=== PATIENT | female | born 2000 | race African-American/Black ===

== ENCOUNTER 2024-04-25 12:42 | Emergency (ER) | payer BC, OTHER ==
[2024-04-25] MEDS ORDERED: NA CHLORIDE 0.9% 1,000 ML ONE (12:47)
[2024-04-25 13:04] LABS: Absolute Lymphocytes (CBC) 2.1 K/uL (0.7-4.9); Absolute Monocytes 0.7 K/uL (0.1-1.3); Absolute Neutrophil 4.3 K/uL (1.8-8.0); Basophils % 0.2 % (0-1.3); Eosinophils % 0.6 % (0-4.4); Hematocrit 34.2 % (36.0-45.0); Lymphocytes % 28.8 % (15.3-44.8); MCH 27.9 pg (27.0-35.0); MCHC 32.2 g/dL (32.0-36.0); MCV 86.8 fL (80-100); MPV 8.1 fL (7.6-11.3); Monocytes % 10.3 % (3.3-12.3); Neutrophils % 60.1 % (41.7-73.7); Platelets 287 thou/uL (152-406); RBC Red Blood Cell Count 3.94 M/uL (3.86-4.86); Red Cell Distribution Width 16.3 % (12.1-15.2)
[2024-04-25] MEDS ORDERED: AMPICILLIN/SULBACTAM 3GM/VIAL ONE (13:06)
[2024-04-25] MEDS ORDERED: NA CHLORIDE 0.9% 100 ML ONE (13:06)
[2024-04-25 13:19] LABS: Anion Gap 8.6 mEq/L (5.0-15.0); Potassium 3.6 mEq/L (3.5-5.1)
[2024-04-25 14:09] VITALS: BP 125/96; TEMP 98; O2SAT 100
--- NOTE | 2024-04-25 14:43 | RAD REPORT ---
EXAM DESCRIPTION: US - OB Limited - 04/25/2024 1:23 pm CLINICAL HISTORY: ABD CRAMPING, COMPARISON: No comparisons TECHNIQUE: Limited sonographic grayscale and color flow images of a late-trimester were ob tained through transabdominal approach. FINDINGS: A single intrauterine is identified. Amniotic fluid index measurement os were obtained. Dynamic fluid index: 5.55 cm. MVP: 1.82 cm IMPRESSION: 1. Low amniotic fluid index, 5.55 cm. Patient is reportedly in labor
--- NOTE | 2024-04-25 15:08 | ER ---
Nurse's Notes [facility] Name: Rogelio Desai Age: 23 yrs Sex: Female : 2000 Arrival Date: 04/25/2024 Time: 12:42 Bed 1 Private MD: Diagnosis: Precipitate labor;40 weeks gestation of -in active labor Presentation: 04/25 12:46 Chief complaint: Patient states: contractions that began at 1030 this morning. Pt ss reports she is 40 weeks and 2 days with her second child. Coronavirus screen: Client denies travel out of the [place] in the last 14 days. Ebola Screen: Patient denies exposure to infectious person. Patient denies travel to an Ebola-affected area in the 21 days before illness onset. Onset of symptoms was April 25, 2024. 12:46 Method Of Arrival: Ambulatory 12:46 Acuity: CHAR 1 13:20 Initial Sepsis Screen: Does the patient meet any 2 criteria? No. Patient's initial [facility] sepsis screen is negative. Does the patient have a suspected source of infection? No. Patient's initial sepsis screen is negative. 13:20 Risk Assessment: Do you want to hurt yourself or someone else? Unable to obtain. 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 - Infectious Disease History:: Denies. - Family history:: not pertinent. - Social history:: Smoking status: unknown. Assessment: 12:50 Obstetrical Assessment: General assessment: awake and alert, skin warm and dry, [facility] respirations even and unlabored, in active labor, Rupture of membranes not noted. Contractions began are regular every three minutes, lasting 1 minute. 13:05 Reassessment: Report given to LUISA Brooks at [facility] L[facility]DDenny 13:15 Reassessment: [facility] here to transport patient to [place]. 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 Vital Signs: 12:51 BP 124 / 79; Pulse 90; Resp 24; Temp 98; Pulse Ox 99% on R/A; ss 13:00 BP 132 / 95; Pulse 93; Resp 20; Pulse Ox 100% on R/A; nj1 13:18 BP 125 / 96; Pulse 79; Resp 18; Pulse Ox 100% ; nj1 Vitals: 12:55 Heart Tones 140. nj1 13:05 Heart Tones 137. nj1 13:08 Heart Tones 142. nj1 13:16 Heart Tones 137. nj1 ED Course: 12:44 Patient arrived in ED. nj1 12:45 Miguel Walker MD is Attending Physician. lila 12:47 Triage completed. ss 12:47 Arm band placed on right wrist. ss 12:50 Inserted saline lock: 20 gauge in left antecubital area, using aseptic technique. Blood nj1 collected. Initiated by Krissy Vargas RN. 13:14 US OB Limited In Process Unspecified. EDMS 13:15 No provider procedures requiring assistance completed. Patient transferred, IV remains ss in place. 13:21 Sarita Salgado, LUISA is Primary Nurse. nj1 13:24 initiated transfer to [facility], pt accepted to L\T\D by Dr Farmer,admin approval given bd by Josefina Cui. Administered Medications: 12:50 Drug: NS 0.9% IV 1000 ml IV at 1 bolus Per protocol; 1000 mL bolus Route: IV; Rate: 1 ss bolus; Site: left antecubital; 13:20 Follow up: Response: No adverse reaction; IV Status: Infusion continued upon admission nj1 13:10 Drug: Ampicillin-Sulbactam Sodium IVPB 3 grams IVPB once over 30 mins; (mix in 100 mL ss NS) Route: IVPB; Infused Over: 30 mins; Site: left antecubital; 13:20 Follow up: Response: No adverse reaction; IV Status: Infusion continued upon transfer nj1 13:16 Not Given (Physician Discretion): butorphanol1 mg IVP once 13:16 Not Given (Physician Discretion): ondansetron 4 mg IVP once; over 2 minutes ss Outcome: 13:06 ER care complete, transfer ordered by . [facility] 13:15 Transferred by ground EMS Transfer form completed. Note: [facility] 13:15 Condition: stable 13:15 Instructed on the need for transfer, 13:20 Patient left the ED. nj1 Signatures: Dispatcher [employer] EDMS Leatha Milligan Corey, MD MD cha Blanchard, Shelby, RN RN ss Krissy Qiu RN RN ap3 Sarita Salgado RN RN nj1 Corrections: (The following items were deleted from the chart) 13:02 12:51 BP 164 / 79; Pulse 90bpm; Resp 24bpm; Pulse Ox 99% RA; Temp 98F; ap3 ss 13:51 13:46 Patient left the ED. nj 13:54 13:41 Initial Sepsis Screen: Does the patient meet any 2 criteria? nj1 nj1
--- NOTE | 2024-04-25 15:08 | EDPHYS ---
Physician Documentation [facility] Name: Rogelio Desai Age: 23 yrs Sex: Female : 2000 Arrival Date: 04/25/2024 Time: 12:42 Bed 1 Private MD: ED Physician Miguel Walker HPI: 04/25 12:56 This 23 yrs old Black Female presents to ER via Ambulatory with complaints of Term lila Labor. 12:56 The patient presents with abdominal pain in the lower abdomen, abdominal distention in lila the lower abdomen. Onset: The symptoms/episode began/occurred 1030 hour(s) ago. The patient presents to the emergency department with possible uterine contractions, and last 5 second(s), abdominal pain, of the right lower quadrant and left lower quadrant. The estimated gestational age is 40.2 weeks. course: care: at a clinic, Leakage of Fluid: none appreciated, Ultrasound: the patient has not had an ultrasound, Risk/complications: no obvious risks or complications are appreciated. Previous pregnancies: in previous pregnancies patient has had vaginal delivery. Associated signs and symptoms: Pertinent positives: abdominal pain. Associated signs and symptoms: Pertinent positives: nausea. 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 - Infectious Disease History:: Denies. - Family history:: not pertinent. - Social history:: Smoking status: unknown. ROS: 12:56 Constitutional: Negative for fever, chills, and weight loss, Eyes: Negative for injury, lila pain, redness, and discharge, ENT: Negative for injury, pain, and discharge, Neck: Negative for injury, pain, and swelling, Cardiovascular: Negative for chest pain, palpitations, and edema, Respiratory: Negative for shortness of breath, cough, wheezing, and pleuritic chest pain, Back: Negative for injury and pain, MS/Extremity: Negative for injury and deformity, Skin: Negative for injury, rash, and discoloration, Neuro: Negative for headache, weakness, numbness, tingling, and seizure, Psych: Negative for depression, anxiety, suicide ideation, homicidal ideation, and hallucinations, Allergy/Immunology: Negative for hives, rash, and allergies, Endocrine: Negative for neck swelling, polydipsia, polyuria, polyphagia, and marked weight changes, Hematologic/Lymphatic: Negative for swollen nodes, abnormal bleeding, and unusual bruising, 12:56 Abdomen/GI: Positive for abdominal pain, abdominal cramps, abdominal distension, 12:56 : Positive for vaginal discharge, Exam: 12:56 Constitutional: This is a well developed, well nourished patient who is awake, alert, lila and in no acute distress. Head/Face: Normocephalic, atraumatic. Eyes: Pupils equal round and reactive to light, extra-ocular motions intact. Lids and lashes normal. Conjunctiva and sclera are non-icteric and not injected. Cornea within normal limits. Periorbital areas with no swelling, redness, or edema. ENT: Nares patent. No nasal discharge, no septal abnormalities noted. Tympanic membranes are normal and external auditory canals are clear. Oropharynx with no redness, swelling, or masses, exudates, or evidence of obstruction, uvula midline. Mucous membranes moist. Neck: Trachea midline, no thyromegaly or masses palpated, and no cervical lymphadenopathy. Supple, full range of motion without nuchal rigidity, or vertebral point tenderness. No Meningismus. Chest/axilla: Normal chest wall appearance and motion. Nontender with no deformity. No lesions are appreciated. Cardiovascular: Regular rate and rhythm with a normal S1 and S2. No gallops, murmurs, or rubs. Normal PMI, no JVD. No pulse deficits. Respiratory: Lungs have equal breath sounds bilaterally, clear to auscultation and percussion. No rales, rhonchi or wheezes noted. No increased work of breathing, no retractions or nasal flaring. Skin: Warm, dry with normal turgor. Normal color with no rashes, no lesions, and no evidence of cellulitis. MS/ Extremity: Pulses equal, no cyanosis. Neurovascular intact. Full, normal range of motion. Neuro: Awake and alert, GCS 15, oriented to person, place, time, and situation. Cranial nerves II-XII grossly intact. Motor strength 5/5 in all extremities. Sensory grossly intact. Cerebellar exam normal. Normal gait. 12:56 Abdomen/GI: Inspection: gravid appearance, is noted, Bowel sounds: normal, Palpation: gravid 40 week, 12:56 : CVA tenderness, is absent, Pelvic Exam: bimanual exam reveals os that is open, gravid uterus, vertex, 8 cm, no srom, fully effaced, Gravid exam: Cervical size: the cervix is dilated to approximately 8 cm(s), Bladder: is normal, Sexual behavior: the patient is sexually active, and reports a single partner, 13:38 : Pelvic Exam: bimanual exam reveals os that is open, 10 cm , +1 station, no lof, lila Vital Signs: 12:51 BP 124 / 79; Pulse 90; Resp 24; Temp 98; Pulse Ox 99% on R/A; ss 13:00 BP 132 / 95; Pulse 93; Resp 20; Pulse Ox 100% on R/A; nj1 13:18 BP 125 / 96; Pulse 79; Resp 18; Pulse Ox 100% ; nj1 MDM: 12:45 Patient medically screened. [facility] 13:03 Differential diagnosis: delivery of infant, active labor. Data reviewed: vital signs, [facility] nurses notes, lab test result(s), radiologic studies, ultrasound. Test considered but Not performed: X-ray: no x ray. Care significantly affected by the following chronic conditions: none. Counseling: I had a detailed discussion with the patient and/or guardian regarding the historical points, exam findings, and any diagnostic results supporting the discharge/admit diagnosis, lab results, radiology results, the need to transfer to another facility, for higher level of care, [facility] does not immediately have the required specialist. 04/25 12:46 Order name: Abo/rh Typing [facility] 04/25 12:46 Order name: Basic Metabolic Panel [facility] 04/25 12:46 Order name: CBC with Diff [facility] 04/25 12:46 Order name: US OB Limited [facility] 04/25 12:46 Order name: IV Saline Lock; Complete Time: 13:11 [facility] 04/25 12:46 Order name: Labs collected and sent; Complete Time: 13:21 [facility] 04/25 12:46 Order name: NPO; Complete Time: 13:11 [facility] Administered Medications: 12:50 Drug: NS 0.9% IV 1000 ml IV at 1 bolus Per protocol; 1000 mL bolus Route: IV; Rate: 1 ss bolus; Site: left antecubital; 13:20 Follow up: Response: No adverse reaction; IV Status: Infusion continued upon admission nj1 13:10 Drug: Ampicillin-Sulbactam Sodium IVPB 3 grams IVPB once over 30 mins; (mix in 100 mL ss NS) Route: IVPB; Infused Over: 30 mins; Site: left antecubital; 13:20 Follow up: Response: No adverse reaction; IV Status: Infusion continued upon transfer nj1 13:16 Not Given (Physician Discretion): butorphanol1 mg IVP once ss 13:16 Not Given (Physician Discretion): ondansetron 4 mg IVP once; over 2 minutes ss Disposition Summary: 04/25/24 13:06 Transfer Ordered Notes: Transfer Location: [facility] lila Reason: Higher level of care lila Condition: Fair lila Problem: new lila Symptoms: are unchanged lila Accepting Physician: to [facility] dr shane(04/25/24 13:46) ss Diagnosis - Precipitate labor lila - 40 weeks gestation of - in active labor lila Forms: - Medication Reconciliation Form lila - SBAR form lila Signatures: Dispatcher [employer] EDMS Miguel Walker MD MD cha Blanchard, Shelby RN RN Sarita Salgado RN RN nj1 Corrections: (The following items were deleted from the chart) 12:46 12:46 ABO/RH TYPING+BB.LAB.BRZ ordered. EDMS EDMS 12:46 12:46 BASIC METABOLIC PANEL+C.LAB.BRZ ordered. EDMS EDMS 12:46 12:46 CBC+H.LAB.BRZ ordered. EDMS EDMS 12:46 12:46 Test, Urine+UC.LAB.BRZ ordered. EDMS EDMS 12:46 12:46 Urinalysis+U.LAB.BRZ ordered. EDMS EDMS 13:46 13:[address] [facility] [address] acosta sharp ss
== END 2024-04-25 13:46 | disposition short-term general hospital (02) ==
LOC: ER 12:42
DX: O62.3 Precipitate labor (principal); Z3A.40 40 weeks gestation of pregnancy
CPT/HCPCS: 85025; 80048; 36415; 86900; 86901; 76815; J0295; J7030

== ENCOUNTER 2024-06-28 15:55 | Emergency (ER) | payer BC, OTHER ==
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
[2024-06-28 17:23] VITALS: BP 115/79; TEMP 97.9; O2SAT 100
== END 2024-06-28 16:39 | disposition home or self-care (01) ==
LOC: ER 15:55
DX: M25.512 Pain in left shoulder (principal); V43.52XA Car driver injured in collision with other type car in traffic accident, initial encounter
CPT/HCPCS: 99283

== ENCOUNTER 2024-07-01 18:04 | Emergency (ER) | payer BC, OTHER ==
[2024-07-01 20:09] LABS: Specific Gravity > 1.030 (1.005-1.030); Urine Bacteria <20 /HPF (<20); Urine Bilirubin NEGATIVE (Negative); Urine Blood Negative (Negative); Urine Clarity Extremely Turbid (Clear); Urine Color Yellow (Yellow); Urine Crystals Unidentified Few /HPF (None Seen); Urine Culture Reflex Order REFLEXED; Urine Glucose NEGATIVE (Negative); Urine Ketones NEGATIVE (Negative); Urine Microscopic Reflex YN ORDER UMIC; Urine Mucus 4+ /HPF (None Seen); Urine Nitrite NEGATIVE (Negative); Urine Protein 1+ (Negative); Urine Urobilinogen 1+ (Normal); Urine WBC >50 /HPF (<5); Urine WBC Clump Rare /HPF (None Seen); Urine Yeast (Budding) Trace /HPF (None Seen)
[2024-07-01 20:18] LABS: Specific Gravity > 1.030 (1.005-1.030)
[2024-07-01 20:20] LABS: Absolute Eosinophils 0.1 K/uL (0-0.5); Absolute Lymphocytes (CBC) 1.7 K/uL (0.7-4.9); Absolute Monocytes 0.5 K/uL (0.1-1.3); Absolute Neutrophil 3.1 K/uL (1.8-8.0); Basophils % 0.4 % (0-1.3); Eosinophils % 2.1 % (0-4.4); Hematocrit 39.5 % (36.0-45.0); Hemoglobin 12.6 g/dL (12.0-15.0); Lymphocytes % 31.1 % (15.3-44.8); MCH 26.7 pg (27.0-35.0); MCHC 31.8 g/dL (32.0-36.0); MCV 83.8 fL (80-100); MPV 8.4 fL (7.6-11.3); Monocytes % 9.6 % (3.3-12.3); Neutrophils % 56.8 % (41.7-73.7); Nucleated Red Blood Cells % 0.1 % (0-0); Platelets 383 thou/uL (152-406); RBC Red Blood Cell Count 4.71 M/uL (3.86-4.86); Red Cell Distribution Width 15.4 % (12.1-15.2)
[2024-07-01 21:36] LABS: Anion Gap 6.6 mEq/L (5.0-15.0); Potassium 3.6 mEq/L (3.5-5.1)
--- NOTE | 2024-07-01 21:58 | RAD REPORT ---
EXAM DESCRIPTION: CT - Soft Tissue Neck W/Contr CLINICAL HISTORY: FACIAL PAIN COMPARISON: No comparisons TECHNIQUE: Thin axial CT images of the neck, performed following intravenous administration of iod inated contrast. Multiplanar reformats were generated and reviewed. All CT scans are performed using dose optimization technique as appropriate and may include automated exposure control or mA/KV adjustment according to patient size. FINDINGS: Expansile multiloculated lesion of the left body of the mandible, containing fluid density anteriorly and soft tissue components posteriorly, resulting in resumption of the bony margins of th e mandible, with displacement of the molars and premolars along the mandibular alveolus, with bluntin g of the roots of the premolars and first smaller. No discrete extra osseous soft tissue component. T he mass measures 5.8 x 3.5 x 3.2 cm in greatest AP, transverse, and CC dimensions. Nasopharyngeal tissues are normal in appearance. Fossa Rosenmller are normal. Parapharyngeal fat triangles are symmetric. Tongue base structures are normal. Epiglottis and aryepiglottic folds are normal. Piriform sinuses are well aerated. The vocal cords are normal in appearance. No suspicious adenopathy. Salivary glands are normal in appearance. Upper lung nguyen are clear. Included intracranial contents are unremarkable. 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 Other considerations such as an odontogenic myxoma and more insidious entities such as fibrous dysplasia or advanced dentigerous cyst are considered less likely.
--- NOTE | 2024-07-01 22:41 | EDPHYS ---
Physician Documentation [facility] Name: Rogelio Desai Age: 23 yrs Sex: Female : 2000 Arrival Date: 07/01/2024 Time: 18:04 Bed 7 Private MD: ED Physician Sylvia Raman HPI: 07/01 18:34 This 23 yrs old Black Female presents to ER via Ambulatory with complaints of Facial kb Swelling, Cyst. 18:34 Pt is a 23 year old female who presents for swelling to left lower jaw that started one kb month ago and got worse and more painful 2 days ago. Denies fever. States she was seen by dentist, was diagnosed with a cyst and has a surgery scheduled for August 20. States she came today because symptoms have gotten worse. . DISABILITY COORDINATOR: 22:22 Not al5 Historical: - Allergies: 18:32 No Known Allergies; aa5 - PMHx: 18:32 None; aa5 - Immunization history:: Adult Immunizations unknown. - Infectious Disease History:: Denies. - Social history:: Smoking status: Reported history of juuling and/or vaping. ROS: 18:36 Constitutional: As per HPI kb Exam: 18:36 Constitutional: This is a well developed, well nourished patient who is awake, alert, kb and in no acute distress. Head/Face: Normocephalic, atraumatic. Cardiovascular: Regular rate Respiratory: Respirations even and unlabored. No increased work of breathing. Talking in full sentences Skin: Warm, dry with normal turgor. Normal color. MS/ Extremity: Pulses equal, no cyanosis. Neurovascular intact. Full, normal range of motion. Neuro: Awake and alert, GCS 15, oriented to person, place, time, and situation. Moves all extremities. Normal gait. 18:36 ENT: Dental exam: gum swelling, that is severe, specifically in the lower left second bicuspid (#20) and lower left first bicuspid (#21), Vital Signs: 18:31 BP 115 / 89; Pulse 72; Resp 16 S; Temp 97.2(TE); Pulse Ox 100% on R/A; Weight 104.78 kg aa5 (R); Height 5 ft. 4 in. (R); 20:45 BP 108 / 69; Pulse 93; Resp 16; Pulse Ox 100% on R/A; al5 22:00 BP 126 / 101; Pulse 95; Resp 16; Pulse Ox 100% ; al5 22:47 BP 125 / 83; Pulse 57; Resp 17; Temp 97.2; Pulse Ox 100% ; Pain 0/10; bm8 18:31 Body Mass Index 39.65 (104.78 kg, 162.56 cm) aa5 22:47 Pain Scale: Adult bm8 22:00 patient lying on R side al5 [place] Coma Score: 22:47 Eye Response: spontaneous(4). Motor Response: obeys commands(6). Verbal Response: bm8 oriented(5). Total: 15. MDM: 18:15 Patient medically screened. kb 22:10 Data reviewed: vital signs, nurses notes. kb 22:14 Differential diagnosis: malignancy, cyst, abscess. Counseling: I had a detailed kb discussion with the patient and/or guardian regarding the historical points, exam findings, and any diagnostic results supporting the discharge/admit diagnosis, lab results, radiology results, the need for outpatient follow up, an oral maxilofacial specialist, to return to the emergency department if symptoms worsen or persist or if there are any questions or concerns that arise at home. 23:10 Management of patient was discussed with the following: Dr Bhakta recommends kb outpatient follow up. Pt already has surgery scheduled for this mass. Discussed with pt. She will call surgeon in the morning. 07/01 18:31 Order name: CBC with Diff; Complete Time: 20:26 kb 07/01 18:31 Order name: BMP; Complete Time: 21:38 kb 07/01 18:31 Order name: Test, Urine; Complete Time: 20:20 kb 07/01 18:31 Order name: Urinalysis w/ reflexes; Complete Time: 20:12 kb 07/01 20:12 Order name: Urine Culture EDMS 07/01 18:31 Order name: CT Soft Tissue Neck W/contr; Complete Time: 21:59 kb 07/01 18:31 Order name: IV Start; Complete Time: 20:10 kb Administered Medications: 23:04 Drug: Hydrocodone-Acetaminophen PO (7.5 mg-325 mg) 1 tabs PO once Route: PO; bm8 23:04 Follow up: Response: No adverse reaction; Medication administered at discharge. bm8 Disposition Summary: 07/01/24 22:41 Discharge Ordered Notes: Location: Home Condition: Stable kb Diagnosis - 5.8cm mass of the other left body of the mandible kb Followup: kb - With: Emergency Department - When: As needed - Reason: Worsening of condition Followup: kb - With: Private Physician - When: 2 - 3 days - Reason: Recheck today's complaints, Continuance of care, Re-evaluation by your physician Forms: - Medication Reconciliation Form kb - Antibiotic Education kb - Prescription Opioid Use kb - Patient Portal Instructions kb - Leadership Thank You Letter kb Signatures: Dispatcher [employer] EDKathe Poole, INCOME TAX RETURN PREPARER-C DAVID-Karo Leroy, RN RN aa5 Saúl Lehman, RN RN bm8
--- NOTE | 2024-07-01 22:41 | ER ---
Nurse's Notes [facility] Name: Rogelio Desai Age: 23 yrs Sex: Female : 2000 Arrival Date: 07/01/2024 Time: 18:04 Bed 7 Private MD: Diagnosis: 5.8cm mass of the other left body of the mandible Presentation: 07/01 18:31 Chief complaint: Patient states: left jaw swelling and pain that began 1 month ago. aa5 Coronavirus screen: At this time, the client does not indicate any symptoms associated with coronavirus-19. Ebola Screen: Patient denies travel to an Ebola-affected area in the 21 days before illness onset. Initial Sepsis Screen: Does the patient meet any 2 criteria? No. Patient's initial sepsis screen is negative. Does the patient have a suspected source of infection? No. Patient's initial sepsis screen is negative. Risk Assessment: Do you want to hurt yourself or someone else? Patient reports no desire to harm self or others. Onset of symptoms was 2023. 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 - Infectious Disease History:: Denies. - Social history:: Smoking status: Reported history of juuling and/or vaping. Screenin:22 [facility] ED Fall Risk Assessment (Adult) History of falling in the last 3 months, al5 including since admission No falls in past 3 months (0 pts) Confusion or Disorientation No (0 pts) Intoxicated or Sedated No (0 pts) Impaired Gait No (0 pts) Mobility Assist Device Used No (0 pt) Altered Elimination No (0 pt) Score/Fall Risk Level 0 - 2 = Low Risk Oriented to surroundings, Maintained a safe environment, Hourly rounding (assess needs \T\ fall precautionary measures) done. Abuse screen: Denies threats or abuse. Denies injuries from another. Nutritional screening: No deficits noted. Tuberculosis screening: No symptoms or risk factors identified. Assessment: 20:45 General: Appears in no apparent distress. Behavior is calm, cooperative. Pain: al5 Complains of pain in lower left first bicuspid (#21) and lower left second bicuspid (#20). Neuro: Level of Consciousness is awake, alert, obeys commands, Oriented to person, place, time, situation. Cardiovascular: Patient's skin is warm and dry. Respiratory: Airway is patent Respiratory effort is even, unlabored, Respiratory pattern is regular, symmetrical. GI: No signs and/or symptoms were reported involving the gastrointestinal system. : No signs and/or symptoms were reported regarding the genitourinary system. EENT: Reports L lower jaw pain. Derm: Skin is pink, warm \T\ dry. normal. Musculoskeletal: No signs and/or symptoms reported regarding the musculoskeletal system. 22:21 Reassessment: Patient appears in no apparent distress at this time. No changes from al5 previously documented assessment. Patient and/or family updated on plan of care and expected duration. Pain level reassessed. Patient is alert, oriented x 3, equal unlabored respirations, skin warm/dry/pink. Vital Signs: 18:31 BP 115 / 89; Pulse 72; Resp 16 S; Temp 97.2(TE); Pulse Ox 100% on R/A; Weight 104.78 kg aa5 (R); Height 5 ft. 4 in. (R); 20:45 BP 108 / 69; Pulse 93; Resp 16; Pulse Ox 100% on R/A; al5 22:00 BP 126 / 101; Pulse 95; Resp 16; Pulse Ox 100% ; al5 22:47 BP 125 / 83; Pulse 57; Resp 17; Temp 97.2; Pulse Ox 100% ; Pain 0/10; bm8 18:31 Body Mass Index 39.65 (104.78 kg, 162.56 cm) aa5 22:47 Pain Scale: Adult bm8 22:00 patient lying on R side al5 [place] Coma Score: 22:47 Eye Response: spontaneous(4). Motor Response: obeys commands(6). Verbal Response: bm8 oriented(5). Total: 15. ED Course: 18:05 Patient arrived in ED. mr 18:15 K[facility] Nails [facility]C [facility] kb 18:15 Sylvia Raman MD is Attending Physician. kb 18:31 Triage completed. aa5 18:31 Arm band placed on. aa5 19:38 Saúl Lehman, RN is Primary Nurse. bm8 19:46 Primary Nurse role handed off by Saúl Lehman RN al5 19:46 Krissy Garner, RN is Primary Nurse. al5 20:03 Inserted saline lock: 22 gauge in left antecubital area, using aseptic technique. Blood ty collected. Flushed with 10 mL NS. 20:06 Initial lab(s) drawn, by me, sent to lab. ty 20:07 BMP Sent, CBC with Diff Sent. ty 20:22 Patient has correct armband on for positive identification. Bed in low position. Call al5 light in reach. Side rails up X 1. Provided Education on: processes and procedures. 20:22 No provider procedures requiring assistance completed. al5 20:43 CT Soft Tissue Neck W/contr In Process Unspecified. EDMS 22:47 Client placed on continuous cardiac and pulse oximetry monitoring. NIBP monitoring bm8 applied. Pulse ox on. NIBP on. Door closed. Noise minimized. Verbal reassurance given. 22:47 IV discontinued, intact, bleeding controlled, No redness/swelling at site. Pressure bm8 dressing applied. Administered Medications: 23:04 Drug: Hydrocodone-Acetaminophen PO (7.5 mg-325 mg) 1 tabs PO once Route: PO; bm8 23:04 Follow up: Response: No adverse reaction; Medication administered at discharge. bm8 Medication: 20:22 VIS not applicable for this client. al5 Outcome: 22:41 Discharge ordered by . kb 22:47 Discharged to home ambulatory, bm8 22:47 Condition: stable 22:47 Discharge instructions given to patient, Instructed on discharge instructions, follow up and referral plans. safety practices, Demonstrated understanding of instructions, follow-up care, medications, 23:05 Patient left the ED. bm8 Signatures: Dispatcher [employer] EDMN Kathe Nails, DIRECTOR OF ACCOUNTS RECEIVABLE-C DIRECTOR OF ACCOUNTS RECEIVABLE-Ckb Esther Page, Reg Reg LoganKaro RN RN aa5 Raymundo Dugan ty Saúl Lehman, RN LUISA bm8 Krissy Garner RN RN al5 Corrections: (The following items were deleted from the chart) 18:33 18:31 Pulse 72bpm; Resp 16bpm; Spontaneous; Pulse Ox 100% RA; Temp 97.2F Temporal; aa5 104.78 kg Reported; Height 5 ft. 4 in. Reported; BMI: 39.6; aa5 18:35 18:31 Chief complaint: Patient states: left jaw swelling and pain that began 1 month aa5 ago aa5 20: 20:10 BASIC METABOLIC PANEL+C.LAB.BRZ drawn and sent. ty ty : 20:10 CBC+H.LAB.BRZ drawn and sent. ty ty
[2024-07-01] MEDS ORDERED: HYDROCODONE/APAP 7.5/325 MG TAB ONE (23:01)
[2024-07-02 00:43] VITALS: TEMP 97.2; O2SAT 100
[2024-07-02 00:51] VITALS: BP 125/83
== END 2024-07-01 23:05 | disposition home or self-care (01) ==
LOC: ER 18:04
DX: M27.8 Other specified diseases of jaws (principal)
CPT/HCPCS: 87088; 85025; 81001; 87086; 80048; 36415; 81025; 70491; 99284; Q9967

== ENCOUNTER 2024-10-27 12:36 | Emergency (ER) | payer BC, OTHER ==
[2024-10-27 13:54] LABS: Specific Gravity 1.025 (1.005-1.030)
[2024-10-27 13:56] LABS: Sqamous Epithelial <5 /HPF (None Seen); Urine Bacteria None Seen /HPF (<20); Urine Culture Reflex Order NOT NEEDED; Urine Mucus 1+ /HPF (None Seen)
[2024-10-27 13:57] LABS: Specific Gravity 1.025 (1.005-1.030); Urine Bilirubin NEGATIVE (Negative); Urine Blood 1+ (Negative); Urine Clarity Turbid (Clear); Urine Color Light-Yellow (Yellow); Urine Glucose NEGATIVE (Negative); Urine Ketones NEGATIVE (Negative); Urine Microscopic Reflex YN NO UMIC; Urine Nitrite NEGATIVE (Negative); Urine Protein NEGATIVE (Negative); Urine Urobilinogen Normal (Normal); Urine pH 5.5 (5.0-7.0)
[2024-10-27 13:58] LABS: Absolute Basophils 0.1 K/uL (0-0.5); Absolute Eosinophils 0.1 K/uL (0-0.5); Absolute Monocytes 0.5 K/uL (0.1-1.3); Absolute Neutrophil 2.7 K/uL (1.8-8.0); Basophils % 1.2 % (0-1.3); Eosinophils % 1.5 % (0-4.4); Hematocrit 33.5 % (36.0-45.0); Hemoglobin 10.5 g/dL (12.0-15.0); Lymphocytes % 36.6 % (15.3-44.8); MCH 25.8 pg (27.0-35.0); MCHC 31.4 g/dL (32.0-36.0); MCV 82.3 fL (80-100); MPV 8.3 fL (7.6-11.3); Monocytes % 9.8 % (3.3-12.3); Neutrophils % 50.9 % (41.7-73.7); Platelets 342 thou/uL (152-406); RBC Red Blood Cell Count 4.07 M/uL (3.86-4.86); Red Cell Distribution Width 16.2 % (12.1-15.2)
--- NOTE | 2024-10-27 14:02 | RAD REPORT ---
EXAM: Transvaginal OB HISTORY: Abd cramping, ;Vaginal bleeding COMPARISON: None TECHNIQUE: Multiple grayscale and color Doppler images were obtained in a transvaginal pelvic ultraso und. Spectral analysis of the Doppler waveforms of the ovaries were performed. FINDINGS: UTERUS: There is an intrauterine gestational sac. This contains a yolk sac and pole. The yolk s ac is abnormally large. [place]-rump length: 0.3 cm which estimates gestational age at 6 weeks 3 day. No heart tones identified. No evidence of subchorionic hemorrhage. A small amount of free fluid is seen in the pelvis. RIGHT OVARY: Normal flow without focal mass. LEFT OVARY: Corpus luteum in the left ovary. Vascular flow is present. IMPRESSION: Single IUP with pole identified but no heart tones present. Abnormally large yolk sac pre sent. This is suspicious for but not diagnostic of a failed first trimester . Recommend correlation with beta hCG and recommend short-term ultrasound follow-up. Bilateral ovarian blood flow.
[2024-10-27 14:13] LABS: Anion Gap 7.6 mEq/L (5.0-15.0); Potassium 3.6 mEq/L (3.5-5.1)
--- NOTE | 2024-10-27 16:34 | ER ---
Nurse's Notes [facility] Name: Rogleio Desai Age: 23 yrs Sex: Female : 2000 Arrival Date: 10/27/2024 Time: 12:36 Bed 5 Private MD: Diagnosis: Incomplete spontaneous without complication Presentation: 10/27 12:44 Chief complaint: Patient states: bleeding and passing clots X 2 days, cramping since iw last night, is approx 11 weeks . Coronavirus screen: At this time, the client does not indicate any symptoms associated with coronavirus-19. Ebola Screen: No symptoms or risks identified at this time. Initial Sepsis Screen: Does the patient meet any 2 criteria? No. Patient's initial sepsis screen is negative. Does the patient have a suspected source of infection? No. Patient's initial sepsis screen is negative. Risk Assessment: Do you want to hurt yourself or someone else? Patient reports no desire to harm self or others. 12:44 Method Of Arrival: Ambulatory iw 12:44 Acuity: CHAR 3 iw 12:46 Onset of symptoms was October 25, 2024. iw DELI MANAGER: 12:46 3, Living 2, LMP 08/04/2024, unknown iw 12:56 3, Full Term 2, Premature 0, 0, Living 2, LMP 08/04/2024, sb4 Verified, EDC 05/11/2025, Gestational age from LMP: 12 weeks 0 days Historical: - Allergies: 12:46 No Known Allergies; iw - Home Meds: 12:46 None [Active]; iw - PMHx: 12:46 None; iw - PSHx: 12:46 jaw surgery-biopsy cyst; iw - Immunization history:: Adult Immunizations not up to date. - Infectious Disease History:: Denies. - Social history:: Smoking status: Patient denies any tobacco usage or history of. Screenin:00 [facility] ED Fall Risk Assessment (Adult) History of falling in the last 3 months, aa5 including since admission No falls in past 3 months (0 pts) Confusion or Disorientation No (0 pts) Intoxicated or Sedated No (0 pts) Impaired Gait No (0 pts) Mobility Assist Device Used No (0 pt) Altered Elimination No (0 pt) Score/Fall Risk Level 0 - 2 = Low Risk Oriented to surroundings, Maintained a safe environment, Educated pt \T\ family on fall prevention, incl call for assistance when getting out of bed. Abuse screen: Denies threats or abuse. Nutritional screening: No deficits noted. Tuberculosis screening: No symptoms or risk factors identified. Assessment: 13:00 General: Appears comfortable, Behavior is calm, cooperative. Pain: Complains of pain in aa5 right lower quadrant and left lower quadrant Pain currently is 6 out of 10 on a pain scale. Quality of pain is described as crampy, Is intermittent. Neuro: Level of Consciousness is awake, alert, obeys commands, Oriented to person, place, time, situation. Cardiovascular: Patient's skin is warm and dry. Respiratory: Airway is patent Respiratory effort is even, unlabored, Respiratory pattern is regular, symmetrical. GI: Abdomen is round non-distended, Bowel sounds present X 4 quads. Abd is soft and non tender X 4 quads. Reports lower abdominal pain, Patient currently denies diarrhea, nausea, vomiting. : Reports vaginal bleeding that is bright red, with clots, moderate flow, since 2 days ago. EENT: No signs and/or symptoms were reported regarding the EENT system. Derm: Skin is dry, Skin is normal, Skin temperature is warm. Musculoskeletal: Range of motion: intact in all extremities. 13:02 Reassessment: Pt to US via wheelchair . aa5 16:55 Neuro: Level of Consciousness is awake, alert, obeys commands, Oriented to person, aa5 place, time, situation. Respiratory: Airway is patent Respiratory effort is even, unlabored, Respiratory pattern is regular, symmetrical. Derm: Skin is dry, Skin is normal, Skin temperature is warm. Vital Signs: 12:44 BP 119 / 82; Pulse 78; Resp 16; Temp 97.3; Pulse Ox 99% ; Weight 105.23 kg; Height 5 iw ft. 4 in. ; Pain 6/10; 15:30 BP 122 / 78; Pulse 74; Resp 18 S; Pulse Ox 99% on R/A; aa5 12:44 Body Mass Index 39.82 (105.23 kg, 162.56 cm) iw 12:44 Pain Scale: Adult iw ED Course: 12:38 Patient arrived in ED. mr 12:38 Adele Lopez PA-C is PHCP. sb4 12:38 Miguel Walker MD is Attending Physician. sb4 12:46 Triage completed. iw 12:47 Arm band placed on. iw 12:49 Karo Logan, RN is Primary Nurse. aa5 13:00 Patient has correct armband on for positive identification. Bed in low position. Call aa5 light in reach. Side rails up X 1. Pulse ox on. NIBP on. 13:44 Initial lab(s) drawn, by ga, sent to lab. Inserted saline lock: 22 gauge in right aa5 antecubital area, using aseptic technique. Blood collected. Flushed with 10 mL NS. 13:44 Urine collected: sent to lab. aa5 13:47 US Transvaginal Ob In Process Unspecified. EDMS 16:34 Adela Cheek MD is Referral Physician. sb4 16:55 IV discontinued, intact, bleeding controlled, No redness/swelling at site. Pressure aa5 dressing applied. Administered Medications: No medications were administered Medication: 13:00 VIS not applicable for this client. aa5 Outcome: 16:34 Discharge ordered by MD. sb4 16:55 Discharged to home ambulatory, aa5 16:55 Condition: stable 16:55 Discharge instructions given to patient, Instructed on discharge instructions, follow up and referral plans. Demonstrated understanding of instructions, follow-up care, 17:00 Patient left the ED. iw Signatures: Dispatcher [employer] EDIA Esther Page, Reg Reg mr Radha Morris, RN RN Karo Logan, RN RN aaAdele Wright, PABriseyda PABriseyda sb4 Corrections: (The following items were deleted from the chart) 12:46 12:44 BP 119 / 82; Pulse 78bpm; Resp 16bpm; Pulse Ox 99%; Temp 97.3F; Pain 6/10, Adult; iw iw
--- NOTE | 2024-10-27 16:34 | EDPHYS ---
Physician Documentation [facility] Name: Rogelio Desai Age: 23 yrs Sex: Female : 2000 Arrival Date: 10/27/2024 Time: 12:36 Bed 5 Private MD: ED Physician Miguel Walker HPI: 10/27 12:56 This 23 yrs old Black Female presents to ER via Ambulatory with complaints of Vaginal sb4 Bleeding, + Preg <12wks. 12:56 The patient presents to the emergency department with vaginal bleeding, that is light, sb4 with clots. The estimated gestational age is 11 weeks. course: care: none, Leakage of Fluid: none appreciated, Ultrasound: the patient has not had an ultrasound, Risk/complications: no obvious risks or complications are appreciated. Previous pregnancies: in previous pregnancies patient has had vaginal delivery, no complications. Associated signs and symptoms: The patient has no apparent associated signs or symptoms. The patient has not experienced similar symptoms in the past. The patient has not recently seen a physician. INSTRUMENT TECH: 12:46 3, Living 2, LMP 08/04/2024, unknown iw 12:56 3, Full Term 2, Premature 0, 0, Living 2, LMP 08/04/2024, sb4 Verified, EDC 05/11/2025, Gestational age from LMP: 12 weeks 0 days Historical: - Allergies: 12:46 No Known Allergies; iw - Home Meds: 12:46 None [Active]; iw - PMHx: 12:46 None; iw - PSHx: 12:46 jaw surgery-biopsy cyst; iw - Immunization history:: Adult Immunizations not up to date. - Infectious Disease History:: Denies. - Social history:: Smoking status: Patient denies any tobacco usage or history of. ROS: 12:56 Constitutional: Negative for fever, chills, and weight loss, sb4 12:56 : Positive for vaginal bleeding, 12:56 All other systems are negative, Exam: 12:56 Constitutional: This is a well developed, well nourished patient who is awake, alert, sb4 and in no acute distress. Head/Face: Normocephalic, atraumatic. Eyes: Extra-ocular motions intact. Periorbital areas with no swelling, redness, or edema. ENT: Mucous membranes moist. Cardiovascular: Regular rate and rhythm with a normal S1 and S2. Respiratory: No increased work of breathing, no retractions or nasal flaring. Abdomen/GI: Soft, non-tender, no distension. Back: No spinal tenderness. No costovertebral tenderness. Full range of motion. Skin: Warm, dry with normal turgor. Normal color with no rashes, no lesions, and no evidence of cellulitis. 16:33 : Pelvic Exam: External exam: is normal, Speculum exam: no bleeding is noted, no sb4 cervicitis, os that is closed, no tissue in cervix is seen, no tissue in vagina is seen, Vital Signs: 12:44 BP 119 / 82; Pulse 78; Resp 16; Temp 97.3; Pulse Ox 99% ; Weight 105.23 kg; Height 5 iw ft. 4 in. ; Pain 6/10; 15:30 BP 122 / 78; Pulse 74; Resp 18 S; Pulse Ox 99% on R/A; aa5 12:44 Body Mass Index 39.82 (105.23 kg, 162.56 cm) iw 12:44 Pain Scale: Adult iw MDM: 12:47 Medical Screening Exam initiated sb4 16:33 Data reviewed: vital signs, nurses notes, lab test result(s), radiologic studies, and sb4 as a result, I will discharge patient. Counseling: I had a detailed discussion with the patient and/or guardian regarding the historical points, exam findings, and any diagnostic results supporting the discharge/admit diagnosis, lab results, radiology results, the need for outpatient follow up, an OB/Gyne specialist, to return to the emergency department if symptoms worsen or persist or if there are any questions or concerns that arise at home. 10/27 12:56 Order name: Basic Metabolic Panel; Complete Time: 14:31 sb4 10/27 12:56 Order name: CBC with Diff; Complete Time: 14:04 sb4 10/27 12:56 Order name: Test, Urine; Complete Time: 13:54 sb4 10/27 12:56 Order name: Quantitative Hcg; Complete Time: 14:31 sb4 10/27 12:56 Order name: Urinalysis w/ reflexes; Complete Time: 14:00 sb4 10/27 12:56 Order name: US Transvaginal Ob; Complete Time: 14:03 sb4 10/27 12:56 Order name: IV Saline Lock; Complete Time: 13:49 sb4 10/27 12:56 Order name: Labs collected and sent; Complete Time: 13:49 sb4 10/27 14:04 Order name: Pelvic Exam Setup; Complete Time: 14:52 sb4 Administered Medications: No medications were administered Disposition Summary: 10/27/24 16:34 Discharge Ordered Notes: Location: Home sb4 Problem: new sb4 Symptoms: are unchanged sb4 Condition: Stable sb4 Diagnosis - Incomplete spontaneous without complication sb4 Followup: sb4 - With: Adela Cheek MD - When: 2 - 3 days - Reason: Recheck today's complaints, Re-evaluation by your physician Discharge Instructions: - Discharge Summary Sheet sb4 - Incomplete Miscarriage sb4 Forms: - Patient Portal Instructions sb4 - Leadership Thank You Letter sb4 Addendum: 11/01/2024 12:47 Co-signature as Attending Physician, Miguel Walker MD I agree with the assessment and c godoy plan of care. Signatures: Dispatcher [employer] Miguel Barnhart MD MD cha Williams, Irene, RN Adele Grimes PA-C PABriseyda sb4
[2024-10-27 17:04] VITALS: BP 119/82; TEMP 97.3; O2SAT 99
== END 2024-10-27 17:00 | disposition home or self-care (01) ==
LOC: ER 12:36
DX: O03.4 Incomplete spontaneous abortion without complication (principal); Z3A.01 Less than 8 weeks gestation of pregnancy
CPT/HCPCS: 36415; 76817; 80048; 81003; 81025; 84702; 85025; 99284